=== PATIENT | male | born 1980 | race Caucasian/White ===

== ENCOUNTER 2020-02-19 12:31 | Observation (INO) | payer OTHER, SELFPAY ==
[2020-02-19] VITALS (16 sets, daily range): BP systolic 122–139; BP diastolic 52–75; PULSE 82–107; RESP 14–27; TEMP 36.9–37.9; O2SAT 95–100; BMI 24.3
--- NOTE | 2020-02-19 | PATH_ITS ---
[facility] Accession Number: [id number] . 01 Material submitted: . appendix - APPENDIX . 01 Clinical history: . ABD PAIN RIGHT SIDE . 02 Diagnosis: Appendix, Appendectomy: Acute appendicitis with mural absceses and serositis. No evidence of neoplasm. MRV 02/22/2020 1143 Local . 02 Electronically signed: . Reyes Asif MD, PhD, Pathologist NPI- [id number] . 01 Gross description: . Received in formalin, labeled appendix, and consists of a 9.5 cm in length by up to 1.8 cm in diameter vermiform appendix with minimal attached will-yellow hemorrhagic mesoappendix. The serosa is will-pink with fibrinous adhesions and the distal 4.5 cm is hemorrhage and ragged with purulent exudate. Sectioning reveals at least two perforation sites and a possible abscess cavity within the distal portion of the appendix, located 4.5 cm from the margin. The mucosa is will and the lumen measures up to 0.6 cm. The wall thickness measures up to 0.4 cm in thickness. Drawer Hardware Worker sections are submitted. . A1: tip (en face, blue), manufacturer's service representative perforation site. A2-A3: perforation site and possible abscess cavity. A4-A5: bisected tip with perforation. ([id number]) /MRV 02/21/2020 1139 Local . 02 Pathologist provided ICD-10: K35.80 . 02 CPT . 714439 Performed at: 01 [facility] [address] [place] [address], [place], [place] [id number] MD Eric Ovalle MD Phone: [phone] Performed at: 02 [facility] [place] [address] [place], [place] [id number] MD Ena Saleh MD Phone: [phone]
[2020-02-19 13:29] LABS: Add Manual Diff / Slide Review NO; Basophils Absolute Auto 0 /uL (0-100); Basophils Percent Auto 0.3 % (0-2); Eosinophils Absolute Auto 100 /uL (0-450); Eosinophils Percent Auto 0.6 % (2-4); Hemoglobin 14.5 g/dL (13.5-17.5); Lymphocytes Absolute Auto 1400 /uL (1100-4500); Lymphocytes Percent Auto 12.1 % (25-40); Mean Corpuscular HGB Conc 33.8 % (30-36); Mean Corpuscular Hemoglobin 29.2 PG (26-34); Mean Corpuscular Volume 86.5 fL (80-100); Monocytes Absolute Auto 1000 /uL (0-900); Monocytes Percent Auto 8.5 % (3-14); Neutrophils Absolute Auto 9400 /uL (1500-7000); Neutrophils Percent Auto 78.5 % (50-75); Platelet Count 210 X10^3/uL (150-400); Red Blood Cell Count 4.97 X10^6/uL (4.5-5.9); Red Cell Distribution Width 12.8 % (11.6-14.8); White Blood Cell Count 11.9 X10^3/uL (4.5-11.0)
[2020-02-19 13:32] LABS: INR 1.1 (0.9-1.3); Prothrombin Time 12.7 SECONDS (10.1-12.7)
[2020-02-19 13:35] LABS: PTT Partial Thromboplastin Tim 33 SECONDS (26.4-36.2)
[2020-02-19 13:37] LABS: Alanine Aminotransferase 17 IU/L (<50); Albumin 4.5 g/dL (3.5-5.0); Albumin Globulin Ratio 1.6 (1.0-2.8); Alkaline Phosphatase 76 U/L (38-126); Aspartate Aminotransferase 25 IU/L (17-59); BUN Creatinine Ratio 13.9 (6-22); Blood Urea Nitrogen 11 mg/dL (9-20); Carbon Dioxide 30 mmol/L (22-32); Chloride 101 mmol/L (98-107); Estimated Glomerular Filt Rate > 60.0 mL/min (>60); Globulin 2.9 g/dL (1.7-4.1); Glucose 115 mg/dL (70-100); HEMOLYSIS 27 (0-50); Lipase 41 U/L (23-300); Potassium 3.4 mmol/L (3.4-5.1); Sodium 138 mmol/L (137-145); Total Protein 7.4 g/dL (6.3-8.2)
[2020-02-19 13:39] LABS: Lactate (Lactic Acid) 1.3 mmol/L (0.7-2.1)
[2020-02-19 13:52] LABS: Procalcitonin < 0.05 ng/mL (<0.5)
--- NOTE | 2020-02-19 14:10 | DI.CT.S_ITS ---
PROCEDURE: CT ABDOMEN PELVIS W CON INDICATIONS: right lower abdominal pain TECHNIQUE: After the administration of intravenous contrast, 5 mm thick sections acquired from the diaphragm to the symphysis. 5 mm coronal and sagittal reformats were acquired. For radiation dose reduction, the following was used: automated exposure control, adjustment of mA and/or kV according to patient size. COMPARISON: None. FINDINGS: Image quality: Excellent. ABDOMEN: Lung bases: Lung bases are clear. Heart size is normal. Solid organs: Evaluation of the liver demonstrates no focal hepatic lesions. The gallbladder appears within normal limits without calcified gallstones. Biliary system is non-dilated. Pancreas enhances normally. No peripancreatic fat stranding or fluid collections. No pancreatic duct dilatation. The spleen is normal in size. No adrenal nodules. Kidneys demonstrate no hydronephrosis. Peritoneum and bowel: Bowel loops demonstrate normal wall thickness and caliber. The appendix is enlarged with wall thickening, measuring to 1.7 cm in diameter. There is associated periappendiceal fat stranding and a small amount of periappendiceal free fluid extending into right paracolic gutter. No macroscopic free air. No periappendiceal abscess. There are few colonic diverticula without acute diverticulitis. Nodes and vessels: No retroperitoneal or mesenteric adenopathy by size criteria. Multiple mildly prominent subcentimeter mesenteric lymph nodes are demonstrated within the right lower quadrant which are likely reactive. Aorta and inferior vena cava are normal in size. Miscellaneous: No ventral hernias. PELVIS: Genitourinary: Bladder wall thickness is normal. Miscellaneous: No inguinal hernias or adenopathy. Bones: No suspicious bony lesions. No vertebral body compression fractures. IMPRESSION: 1. Findings consistent with acute appendicitis with a small amount of periappendiceal fluid in the right pericolic gutter. Perforation cannot be excluded. No associated free air or abscess collection identified. Findings discussed with ANIKA Dukes on 02/19/2020 at 2:42 p.m.. Dictated by: Eric Gan M.D. on 02/19/2020 at 14:39 Approved by: Eric Gan M.D. on 02/19/2020 at 14:44
[2020-02-19] MEDS: SODIUM CHLORIDE 0.9% 1,000 ML 125 ML IV (14:53)
--- NOTE | 2020-02-19 14:59 | ED.ABDPAIN ---
HPI - Abdominal Pain <ALBERT DukesP - Last Filed: 02/19/20 15:40> General Chief Complaint: Abdominal Pain Stated Complaint: ABD PAIN RIGHT SIDE Time Seen by Provider: 02/19/20 13:55 Source: patient Mode of arrival: Ambulatory Limitations: no limitations History of Present Illness HPI narrative: This is a 39-year-old male, noncontributing medical history presents to ED with chief complain of right knee and low quadrant pain for a few days. Patient denies fever, chills, nausea or vomiting or diarrhea. Patient reports he had similar symptoms about a month ago for 5 days which resolved spontaneously. Patient denies recent illness. Reports pain increases with pressure, twisting, bending motion and improves with rest. Patient also had mild low back pain which resolved. Patient denies urinary symptoms including hematuria, dysuria, frequency, urgency, kidney stone. Patient denies unusual penile discharge or scrotal mass. Last meal at 11:00 a.m. had salad and drink at 12:30 p.m. with sips of water. No previous abdominal surgeries. Related Data Home Medications Medication Instructions Recorded Confirmed No Known Home Medications 02/19/20 02/19/20 Allergies Allergy/AdvReac Type Severity Reaction Status Date / Time No Known Drug Allergies Allergy Verified 02/19/20 16:28 Review of Systems <ALBERT DukesP - Last Filed: 02/19/20 15:40> Review of Systems Narrative: General: Denies fever, chills, fatigue, malaise, sweats. HEENT: Denies sinus pain, ear pain, sore throat, difficulty swallowing, dizziness. Respiratory: Denies dyspnea, cough, wheezing, hemoptysis, sputum. Cardiovascular: Denies chest pain, palpitations, orthopnea, edema. Gastrointestinal: See HPI : Denies dysuria, frequency, incontinence, hematuria, urinary retention. Musculoskeletal: Resolved low back pain. Denies weakness, joint pain or bony pain. Skin: Denies rash, skin lesions, or other. Neurologic: Denies weakness, headache, numbness, change in speech, confusion, seizures, incoordination. Psychiatric: No concerning psychosocial issues. 12-point review of systems is negative except for those stated above. Patient History [facility] Last Filed: 02/19/20 15:40> Surgical History History of surgical removal of meniscus of knee (Acute) Social History household members: spouse Smoking Status: Never smoker alcohol intake: current Smoking Status: Never smoker alcohol intake frequency: 0-2 drinks per day Substance Use Type: does not use Exam <ANIKA Dukes - Last Filed: 02/19/20 15:40> Narrative Exam Narrative: GEN: Alert, oriented x 3, well appearing and nourished, and in no acute distress. Head: Normal cephalic, atraumatic. No scalp or temporal tenderness, palpable mass or rash. EYES: Pupils are equal, round, and reactive to light and accommodation. Extraocular muscles are intact bilaterally. There is no subconjunctival hemorrhage, exudate and sclera non-icteric. ENT: Bilateral auditory canals and tympanic membranes clear. Hearing grossly intact. Nose without bleeding, purulent discharge or deviation. Facial sinuses nontender to palpate. Mucous membrane moist, no mucosal lesion. Throat without erythema, tonsillar hypertrophy or exudate. Uvula in midline, airway patent. Neck: Trachea in midline. No JVD, non-tender without lymphadenopathy. No masses or thyroid megaly. Supple, non-tender and no meningeal signs. CARDIAC: Normal regular rate and rhythm without murmurs, gallops, or rubs. No chest wall tenderness. No peripheral edema, cyanosis or pallor. Capillary refill is less than 2 seconds. RESPIRATORY: Lungs are clear to auscultate bilaterally. No cough, wheezes, rales, or rhonchi. No stridor, respiratory distress, increase work of breathing, or accessary muscle used. ABD: Abdomen soft and non-distended. Right need and low abdominal pain tender to palpate. No guarding or rebound tenderness to palpate. Bowel sounds are normal in all 4 quadrants. There is no palpable masses or organomegaly. EXT: Full painless ROM of all extremities with no loss of sensation, strength, effusion or edema. SKIN: Warm, dry, normal color for patient. No erythema, lesions or rash over visible areas. BACK: Nontender without deformity or crepitance. No flank tenderness. NEUROLOGICAL: Alert and oriented to place, time and person. Sensation and motor function intact bilaterally. No facial droops, dysphasia. PSYCHIATRIC: Good judgement and reason, without hallucinations, abnormal affect or abnormal behaviors during the examination. Patient is not suicidal. Initial Vital Signs Initial Vital Signs: Vital Signs Temperature 98.4 F 02/19/20 12:41 Pulse Rate 96 H 02/19/20 12:41 Respiratory Rate 15 02/19/20 12:41 Blood Pressure 139/75 02/19/20 12:41 Pulse Oximetry 99 02/19/20 12:41 <Levy Kingston MD - Last Filed: 02/19/20 18:14> Initial Vital Signs Initial Vital Signs: Vital Signs Temperature 98.4 F 02/19/20 12:41 Pulse Rate 96 H 02/19/20 12:41 Respiratory Rate 15 02/19/20 12:41 Blood Pressure 139/75 02/19/20 12:41 Pulse Oximetry 99 02/19/20 12:41 Scores <ANIKA Dukes - Last Filed: 02/19/20 15:40> GCS [place] coma scale eye opening: Spontaneous [place] coma scale verbal response: Orientated Demi coma scale motor response: Obey commands Demi coma scale total score: 15 Course <ANIKA Dukes - Last Filed: 02/19/20 15:40> Orders Ordered: ED Orders 02/19/20 13:16 Complete Blood Count AUTO DIFF Stat Comprehensive Metabolic Panel Stat Lactate (Lactic Acid) Stat Lipase Stat Partial Thromboplastin Time Stat Procalcitonin Stat Prothrombin Time INR Stat 02/19/20 14:10 CT abdomen pelvis w con Stat 02/19/20 14:55 COVID19 -ED/INPAT/OR/L&D Stat Sodium Chloride (Normal Saline 0.9%) 1,000 mls @ 125 mls/hr IV CONT LEWIS Last Infusion: 02/19/20 15:54 Dose: 125 mls/hr Documented by: Admin: 02/19/20 14:53 Dose: 125 mls/hr Documented by: ABAD Lactated Ringer's (Lactated Ringers) 1,000 mls @ 42 mls/hr IV CONT LEWIS Last Admin: 02/19/20 16:36 Dose: 42 mls/hr Documented by: LEEANNE Discontinued Medications Piperacillin/Tazobactam/Dextrose (Zosyn) 3.375 gm in 50 mls @ 100 mls/hr IV NOW ONE Stop: 02/19/20 15:35 Last Infusion: 02/19/20 16:28 Dose: 0 mls/hr Documented by: Infusion: 02/19/20 15:53 Dose: 100 mls/hr Documented by: Admin: 02/19/20 15:35 Dose: 100 mls/hr Documented by: ABAD Reevaluation(s) Reevaluation #1: Radiologist phoned to inform appendicitis with free fluid without abscess appreciated per CT test. Informed patient of findings. Waiting for Dr. Lea's phone call. Time: 14:50 Consultations Consultation #1: Dr. Lea consulted with CT findings, labs and physical findings for appy. He kindly accepted the patient's care. He recommended IV Zosyn 3.375 g and will evaluate patient. Time: 14:55 Vital Signs Vital signs: Vital Signs - 8 hr 02/19/20 12:41 02/19/20 15:02 02/19/20 15:03 Temperature 98.4 F Pulse Rate 96 H 82 86 Respiratory Rate 15 Blood Pressure 139/75 135/72 Pulse Oximetry 99 98 99 <Levy Kingston MD - Last Filed: 02/19/20 18:14> Orders Ordered: ED Orders 02/19/20 13:16 Complete Blood Count AUTO DIFF Stat Comprehensive Metabolic Panel Stat Lactate (Lactic Acid) Stat Lipase Stat Partial Thromboplastin Time Stat Procalcitonin Stat Prothrombin Time INR Stat 02/19/20 14:10 CT abdomen pelvis w con Stat 02/19/20 14:55 COVID19 -ED/INPAT/OR/L&D Stat Sodium Chloride (Normal Saline 0.9%) 1,000 mls @ 125 mls/hr IV CONT LEWIS Last Infusion: 02/19/20 15:54 Dose: 125 mls/hr Documented by: Admin: 02/19/20 14:53 Dose: 125 mls/hr Documented by: ABAD Lactated Ringer's (Lactated Ringers) 1,000 mls @ 42 mls/hr IV CONT LEWIS Last Admin: 02/19/20 16:36 Dose: 42 mls/hr Documented by: LEEANNE Discontinued Medications Piperacillin/Tazobactam/Dextrose (Zosyn) 3.375 gm in 50 mls @ 100 mls/hr IV NOW ONE Stop: 02/19/20 15:35 Last Infusion: 02/19/20 16:28 Dose: 0 mls/hr Documented by: Infusion: 02/19/20 15:53 Dose: 100 mls/hr Documented by: Admin: 02/19/20 15:35 Dose: 100 mls/hr Documented by: MMINOR Vital Signs Vital signs: Vital Signs - 8 hr 02/19/20 12:41 02/19/20 15:02 02/19/20 15:03 Temperature 98.4 F Pulse Rate 96 H 82 86 Respiratory Rate 15 Blood Pressure 139/75 135/72 Pulse Oximetry 99 98 99 MDM - Abdominal Pain <[place] ANIKA Greenfield - Last Filed: 02/19/20 15:40> Differential Diagnosis Differential diagnosis: Likely acute appendicitis, calculus of kidney, small bowel obstruction and other (Lymphadenopathy, diverticulitis, UTI) Medical Records Attestation: I reviewed the patient's medical records. Lab Data Attestation: I reviewed the patient's lab results. Result diagrams: 02/19/20 13:16 02/19/20 13:16 Labs: Lab Results 02/19/20 02/19/20 02/19/20 Range/Units 13:16 13:16 13:16 WBC 11.9 H (4.5-11.0) X10^3/uL RBC 4.97 (4.5-5.9) X10^6/uL Hgb 14.5 (13.5-17.5) g/dL Hct 43.0 (41-53) % MCV 86.5 (80-100) fL MCH 29.2 (26-34) PG MCHC 33.8 (30-36) % RDW 12.8 (11.6-14.8) % Plt Count 210 (150-400) X10^3/uL Neut % (Auto) 78.5 H (50-75) % Lymph % (Auto) 12.1 L (25-40) % [place]ountain % (Auto) 8.5 (3-14) % Eos % (Auto) 0.6 L (2-4) % Baso % (Auto) 0.3 (0-2) % Neut # (Auto) 9400 H (6879-1928) /uL Lymph # (Auto) 1400 (6183-8557) /uL [place] # (Auto) 1000 H (0-900) /uL Eos # (Auto) 100 (0-450) /uL Baso # (Auto) 0 (0-100) /uL PT 12.7 (10.1-12.7) SECONDS INR 1.1 (0.9-1.3) APTT 33 (26.4-36.2) SECONDS Sodium 138 (137-145) mmol/L Potassium 3.4 (3.4-5.1) mmol/L Chloride 101 (98-107) mmol/L Carbon Dioxide 30 (22-32) mmol/L BUN 11 (9-20) mg/dL Creatinine 0.79 (0.66-1.25) mg/dL Estimated GFR > 60.0 (>60) mL/min BUN/Creatinine Ratio 13.9 (6-22) Glucose 115 H (70-100) mg/dL Lactate (0.7-2.1) mmol/L Calcium 9.0 (8.4-10.2) mg/dL Total Bilirubin 1.0 (0.2-1.3) mg/dL AST 25 (17-59) IU/L ALT 17 (<50) IU/L Alkaline Phosphatase 76 (38-126) U/L Total Protein 7.4 (6.3-8.2) g/dL Albumin 4.5 (3.5-5.0) g/dL Globulin 2.9 (1.7-4.1) g/dL Albumin/Globulin Ratio 1.6 (1.0-2.8) Lipase 41 (23-300) U/L Procalcitonin (<0.5) ng/mL COVID-19 PCR (Negative) 02/19/20 02/19/20 02/19/20 Range/Units 13:16 13:16 14:55 WBC (4.5-11.0) X10^3/uL RBC (4.5-5.9) X10^6/uL Hgb (13.5-17.5) g/dL Hct (41-53) % MCV (80-100) fL MCH (26-34) PG MCHC (30-36) % RDW (11.6-14.8) % Plt Count (150-400) X10^3/uL Neut % (Auto) (50-75) % Lymph % (Auto) (25-40) % [place] % (Auto) (3-14) % Eos % (Auto) (2-4) % Baso % (Auto) (0-2) % Neut # (Auto) (9346-7319) /uL Lymph # (Auto) (9644-0078) /uL Fountain # (Auto) (0-900) /uL Eos # (Auto) (0-450) /uL Baso # (Auto) (0-100) /uL PT (10.1-12.7) SECONDS INR (0.9-1.3) APTT (26.4-36.2) SECONDS Sodium (137-145) mmol/L Potassium (3.4-5.1) mmol/L Chloride (98-107) mmol/L Carbon Dioxide (22-32) mmol/L BUN (9-20) mg/dL Creatinine (0.66-1.25) mg/dL Estimated GFR (>60) mL/min BUN/Creatinine Ratio (6-22) Glucose (70-100) mg/dL Lactate 1.3 (0.7-2.1) mmol/L Calcium (8.4-10.2) mg/dL Total Bilirubin (0.2-1.3) mg/dL AST (17-59) IU/L ALT (<50) IU/L Alkaline Phosphatase (38-126) U/L Total Protein (6.3-8.2) g/dL Albumin (3.5-5.0) g/dL Globulin (1.7-4.1) g/dL Albumin/Globulin Ratio (1.0-2.8) Lipase (23-300) U/L Procalcitonin < 0.05 (<0.5) ng/mL COVID-19 PCR Negative (Negative) Point of care testing: Urine Dip Bedside Urine Glucose Negative Bedside Urine Bilirubin - Negative Bedside Urine Ketone - Negative Urine Specific [place] 1.020 Bedside Urine Occult Blood - Negative Bedside Urine pH 6.0 Bedside Urine Protein - Negative Bedside Urine Urobilinogen - Negative Bedside Urine Nitrite - Negative Bedside Urine Leukocytes - Negative Esterase Imaging Data CT scan - abdomen/pelvis: Radiologist's Impression: [address] [address] [address] Scan Report Signed Patient: Bonifacio Abdi MMR#: [id number] : 1980Acct:[id number] Age/Sex: 39 / MDate of Service: 02/19/20 Loc: ED Accession Number: [id number] Procedure: CT abdomen pelvis w con Ordering Provider: Levy Kingston MD PROCEDURE: CT ABDOMEN PELVIS W CON INDICATIONS: right lower abdominal pain TECHNIQUE: After the administration of intravenous contrast, 5 mm thick sections acquired from the diaphragm to the symphysis. 5 mm coronal and sagittal reformats were acquired. For radiation dose reduction, the following was used: automated exposure control, adjustment of mA and/or kV according to patient size. COMPARISON: None. FINDINGS: Image quality: Excellent. ABDOMEN: Lung bases: Lung bases are clear. Heart size is normal. Solid organs: Evaluation of the liver demonstrates no focal hepatic lesions. The gallbladder appears within normal limits without calcified gallstones. Biliary system is non-dilated. Pancreas enhances normally. No peripancreatic fat stranding or fluid collections. No pancreatic duct dilatation. The spleen is normal in size. No adrenal nodules. Kidneys demonstrate no hydronephrosis. Peritoneum and bowel: Bowel loops demonstrate normal wall thickness and caliber. The appendix is enlarged with wall thickening, measuring to 1.7 cm in diameter. There is associated periappendiceal fat stranding and a small amount of periappendiceal free fluid extending into right paracolic gutter. No macroscopic free air. No periappendiceal abscess. There are few colonic diverticula without acute diverticulitis. Nodes and vessels: No retroperitoneal or mesenteric adenopathy by size criteria. Multiple mildly prominent subcentimeter mesenteric lymph nodes are demonstrated within the right lower quadrant which are likely reactive. Aorta and inferior vena cava are normal in size. Miscellaneous: No ventral hernias. PELVIS: Genitourinary: Bladder wall thickness is normal. Miscellaneous: No inguinal hernias or adenopathy. Bones: No suspicious bony lesions. No vertebral body compression fractures. IMPRESSION: 1. Findings consistent with acute appendicitis with a small amount of periappendiceal fluid in the right pericolic gutter. Perforation cannot be excluded. No associated free air or abscess collection identified. Findings discussed with ANIKA Dukes on 02/19/2020 at 2:42 p.m.. Dictated by: Eric Gan M.D. on 02/19/2020 at 14:39 Approved by: Eric Gan M.D. on 02/19/2020 at 14:44 [facility] Narrative Medical decision making narrative: This is a 39-year-old male who present to ED with right lower quadrant pain for last several days. Patient denies constitutional symptoms. Patient denies urinary symptoms. Mild leukocytosis of 11.9 with neutrophil of 78.5%. Normal lactate of 1.3 with procalcitonin last and 0.05. Slightly elevated glucose of 115. Normal coags. Physical exam was concerned for appendicitis with tender to palpate in right mid to low abdomen and CT of abdomen pelvis ordered and obtained. CT test shows appendicitis with small amount of free fluid without obvious abscess seen. Urine test was negative. Covid test was negative. Dr. Lea consulted and he kindly accepted patient's care. Started IV fluid and Zosyn 3.375 g. Patient had last meal at 11 a.m. and sips of water at 12:30 p.m for surgical intervention. Findings discussed with patient and he verbalized understanding and agreement with the treatment plan. <Levy Kingston MD - Last Filed: 02/19/20 18:14> Lab Data Labs: Lab Results 02/19/20 02/19/20 02/19/20 Range/Units 13:16 13:16 13:16 WBC 11.9 H (4.5-11.0) X10^3/uL RBC 4.97 (4.5-5.9) X10^6/uL Hgb 14.5 (13.5-17.5) g/dL Hct 43.0 (41-53) % MCV 86.5 (80-100) fL MCH 29.2 (26-34) PG MCHC 33.8 (30-36) % RDW 12.8 (11.6-14.8) % Plt Count 210 (150-400) X10^3/uL Neut % (Auto) 78.5 H (50-75) % Lymph % (Auto) 12.1 L (25-40) % [place] % (Auto) 8.5 (3-14) % Eos % (Auto) 0.6 L (2-4) % Baso % (Auto) 0.3 (0-2) % Neut # (Auto) 9400 H (6504-8806) /uL Lymph # (Auto) 1400 (2695-3661) /uL [place] # (Auto) 1000 H (0-900) /uL Eos # (Auto) 100 (0-450) /uL Baso # (Auto) 0 (0-100) /uL PT 12.7 (10.1-12.7) SECONDS INR 1.1 (0.9-1.3) APTT 33 (26.4-36.2) SECONDS Sodium 138 (137-145) mmol/L Potassium 3.4 (3.4-5.1) mmol/L Chloride 101 (98-107) mmol/L Carbon Dioxide 30 (22-32) mmol/L BUN 11 (9-20) mg/dL Creatinine 0.79 (0.66-1.25) mg/dL Estimated GFR > 60.0 (>60) mL/min BUN/Creatinine Ratio 13.9 (6-22) Glucose 115 H (70-100) mg/dL Lactate (0.7-2.1) mmol/L Calcium 9.0 (8.4-10.2) mg/dL Total Bilirubin 1.0 (0.2-1.3) mg/dL AST 25 (17-59) IU/L ALT 17 (<50) IU/L Alkaline Phosphatase 76 (38-126) U/L Total Protein 7.4 (6.3-8.2) g/dL Albumin 4.5 (3.5-5.0) g/dL Globulin 2.9 (1.7-4.1) g/dL Albumin/Globulin Ratio 1.6 (1.0-2.8) Lipase 41 (23-300) U/L Procalcitonin (<0.5) ng/mL COVID-19 PCR (Negative) 02/19/20 02/19/20 02/19/20 Range/Units 13:16 13:16 14:55 WBC (4.5-11.0) X10^3/uL RBC (4.5-5.9) X10^6/uL Hgb (13.5-17.5) g/dL Hct (41-53) % MCV (80-100) fL MCH (26-34) PG MCHC (30-36) % RDW (11.6-14.8) % Plt Count (150-400) X10^3/uL Neut % (Auto) (50-75) % Lymph % (Auto) (25-40) % [place] % (Auto) (3-14) % Eos % (Auto) (2-4) % Baso % (Auto) (0-2) % Neut # (Auto) (8753-7756) /uL Lymph # (Auto) (8980-0618) /uL [place] # (Auto) (0-900) /uL Eos # (Auto) (0-450) /uL Baso # (Auto) (0-100) /uL PT (10.1-12.7) SECONDS INR (0.9-1.3) APTT (26.4-36.2) SECONDS Sodium (137-145) mmol/L Potassium (3.4-5.1) mmol/L Chloride (98-107) mmol/L Carbon Dioxide (22-32) mmol/L BUN (9-20) mg/dL Creatinine (0.66-1.25) mg/dL Estimated GFR (>60) mL/min BUN/Creatinine Ratio (6-22) Glucose (70-100) mg/dL Lactate 1.3 (0.7-2.1) mmol/L Calcium (8.4-10.2) mg/dL Total Bilirubin (0.2-1.3) mg/dL AST (17-59) IU/L ALT (<50) IU/L Alkaline Phosphatase (38-126) U/L Total Protein (6.3-8.2) g/dL Albumin (3.5-5.0) g/dL Globulin (1.7-4.1) g/dL Albumin/Globulin Ratio (1.0-2.8) Lipase (23-300) U/L Procalcitonin < 0.05 (<0.5) ng/mL COVID-19 PCR Negative (Negative) Point of care testing: Urine Dip Bedside Urine Glucose Negative Bedside Urine Bilirubin - Negative Bedside Urine Ketone - Negative Urine Specific [place] 1.020 Bedside Urine Occult Blood - Negative Bedside Urine pH 6.0 Bedside Urine Protein - Negative Bedside Urine Urobilinogen - Negative Bedside Urine Nitrite - Negative Bedside Urine Leukocytes - Negative Esterase Discharge Plan Departure Patient Disposition: Admitted as Observation Clinical Impression: Acute appendicitis Qualifiers: Acute appendicitis type: unspecified acute appendicitis type Qualified Code(s): K35.80 - Unspecified acute appendicitis Discharge Date/Time: 02/19/20 15:55 Admit Date/Time: 02/19/20 15:11 Admit Provider: Torito Lea <Levy Kingston MD - Last Filed: 02/19/20 18:14> Cosign ED Attending Cosignature Attestation: I was immediately available in the department for consultation. This documentation has been reviewed and I agree with assessment and plan. Supervised by Levy Kingston MD
[2020-02-19 15:29] LABS: COVID19 -Nasal RAPID Negative (Negative)
[2020-02-19] MEDS: PIPERACILLIN-TAZO 3.375 GM/50 ML FROZ.PIGGY IV (15:35)
[2020-02-19] MEDS: LACTATED RINGERS 1,000 ML 42 ML IV ×3 (16:36→22:40)
--- NOTE | 2020-02-19 18:42 | SUR.HOLD ---
Transferred patient back to inpatient room due to complications and delay with previous patient's surgery. Apologized to patient for delay of surgical procedure. Patient states he would rather wait in his room until his surgery can be started. Gave report to inpatient nurse regarding situation.
--- NOTE | 2020-02-19 21:12 | PM.HP.1 ---
History of Present Illness History of Present Illness Date Patient Seen: 02/19/20 Time Patient Seen: 21:13 Chief complaint: ABD PAIN RIGHT SIDE Narrative: 39-year-old male seen in the hospital in consultation for acute appendicitis. He has had some vague abdominal pain for the last 2 days today becoming more focused in the right lower quadrant. No associated nausea vomiting or diarrhea. CT abdomen pelvis demonstrates a 1.7 cm appendix with a small amount of for associated free fluid. No free air or abscess. He received Zosyn in the emergency room. No history of prior abdominal surgery. No major medical conditions. He has tolerated anaesthesia previously for a meniscal repair. Patient History Surgical History History of surgical removal of meniscus of knee (Acute) Family & Social History Social History: household members spouse Prior Living Arrangements House Safety & Behavioral: Feels Safe in Current Yes Environment Been Physically Hurt or No Threatened By a Person Suicidal Ideation Description None Suicide Plan Description No Plan Tobacco & Substance use: Smoking Status Never smoker alcohol intake current alcohol intake frequency a few times a week Substance Use Type does not use Meds Home Medications and Allergies Home Medications Medication Instructions Recorded Confirmed Type No Known Home Medications 02/19/20 02/19/20 History Allergies Allergy/AdvReac Type Severity Reaction Status Date / Time No Known Drug Allergies Allergy Verified 02/19/20 16:28 Review of Systems Review of Systems Narrative: A 10 point review of systems is negative except as noted in the HPI Exam Vital Signs (past 8 hours): - 02/19/20 15:02 02/19/20 15:03 02/19/20 15:30 Temperature Pulse Rate 82 86 86 Respiratory Rate Blood Pressure 135/72 122/67 Pulse Oximetry 98 99 98 02/19/20 15:45 02/19/20 16:09 02/19/20 16:38 Temperature 99.6 F 99.2 F Pulse Rate 87 92 H Respiratory Rate 14 14 16 Blood Pressure 128/67 132/63 Pulse Oximetry 100 98 02/19/20 17:35 Temperature 100.3 F H Pulse Rate 87 Respiratory Rate 16 Blood Pressure 135/75 Pulse Oximetry 98 Oxygen Delivery Method Room Air Narrative Exam Narrative: General-no acute distress, well nourished adult male HEENT-moist mucous membranes, no scleral icterus Neck-supple, no lymphadenopathy Chest- non labored respirations, clear to auscultation bilaterally Cardiac-regular rate no peripheral edema Abdomen-tender right lower quadrant no guarding Extremities-warm, well perfused Neurological-alert and oriented, no focal deficits Objective Labs Result Diagrams: 02/19/20 13:16 02/19/20 13:16 Labs: Laboratory Results - last 24 hr 02/19/20 02/19/20 02/19/20 13:16 13:16 13:16 WBC 11.9 H RBC 4.97 Hgb 14.5 Hct 43.0 MCV 86.5 MCH 29.2 MCHC 33.8 RDW 12.8 Plt Count 210 Neut % (Auto) 78.5 H Lymph % (Auto) 12.1 L [place] % (Auto) 8.5 Eos % (Auto) 0.6 L Baso % (Auto) 0.3 Neut # (Auto) 9400 H Lymph # (Auto) 1400 [place] # (Auto) 1000 H Eos # (Auto) 100 Baso # (Auto) 0 PT 12.7 INR 1.1 APTT 33 Sodium 138 Potassium 3.4 Chloride 101 Carbon Dioxide 30 BUN 11 Creatinine 0.79 Estimated GFR > 60.0 BUN/Creatinine Ratio 13.9 Glucose 115 H Lactate Calcium 9.0 Total Bilirubin 1.0 AST 25 ALT 17 Alkaline Phosphatase 76 Total Protein 7.4 Albumin 4.5 Globulin 2.9 Albumin/Globulin Ratio 1.6 Lipase 41 Procalcitonin COVID-19 PCR 02/19/20 02/19/20 02/19/20 13:16 13:16 14:55 WBC RBC Hgb Hct MCV MCH MCHC RDW Plt Count Neut % (Auto) Lymph % (Auto) [place] % (Auto) Eos % (Auto) Baso % (Auto) Neut # (Auto) Lymph # (Auto) [place] # (Auto) Eos # (Auto) Baso # (Auto) PT INR APTT Sodium Potassium Chloride Carbon Dioxide BUN Creatinine Estimated GFR BUN/Creatinine Ratio Glucose Lactate 1.3 Calcium Total Bilirubin AST ALT Alkaline Phosphatase Total Protein Albumin Globulin Albumin/Globulin Ratio Lipase Procalcitonin < 0.05 COVID-19 PCR Negative Assessment & Plan Assessment & Plan narrative: 39-year-old male with acute appendicitis x [address] scan demonstrates a 5 in thickened appendix and small amount of free fluid no abscess. White blood cell count on admission 12 afebrile. Recommended that we proceed to the operating room for a laparoscopic appendectomy. Technical details were discussed. Operative risks including bleeding infection damage to surrounding structures were discussed. His questions have been answered he is in agreement with this plan. Quality VTE Deep Vein Thrombosis/Pulmonary Embolism Present on Admission: No
--- NOTE | 2020-02-19 21:45 | SUR.OPER ---
Supine on padded OR bed, head on pillow, left arm padded and tucked at side, right arm on padded armboard <90 degrees abduction, legs uncrossed, safety belt at thigh, tape over blanket over lower legs .
[2020-02-19] MEDS: BUPIVACAINE 0.25% (PF) VIAL 30 ML INJ (21:52)
--- NOTE | 2020-02-19 22:33 | PC.NURSE ---
Pt is A and O x 4, VSS, febrile at 100.3, HRR, LS clear. Pain R LQ 2-3/10. Voiding qs clear yellow. Pt arrived on unit at 1604 and was taken to the OR at approx 1700 but his surgery delayed, brought back up to unit, then taken to OR at approx 2100.
--- NOTE | 2020-02-19 22:53 | P.OP_ITS ---
Operative Date/Time/Diagnoses Date of procedure: 02/19/20 Time of procedure: 22:53 Pre-op diagnosis: Acute appendicitis Post-op diagnosis: same Procedure & Clinicians Procedure: Laparoscopic appendectomy Same procedure as scheduled: Yes Indications: 39-year-old male presented with 2 days of abdominal pain CT demonstrates acute appendicitis no abscess small amount of free fluid. Interestingly he had some abdominal pain 1 month ago unclear etiology that resolved spontaneously Surgeon: Torito Lea Click Yes if Unassisted: Yes Anesthesia Type: General Operative Notes Findings: Perforated appendicitis, small amount of free fluid no purulence peritonitis small abscess around the tip of the appendix Specimen(s): other (Appendix) Estimated Blood Loss (mL): 100 Procedure in detail: Patient was brought to the operating room placed supine on the table. Bilateral lower extremity compression devices were applied. Anesthesia was induced and they intubated with an endotracheal tube. They received 3.375 g of Zosyn prior to skin incision. The left arm was tucked and appropriately padded. They were prepped and draped in sterile fashion. Time-out was performed. An infraumbilical incision was made the umbilical stalk was grasped and elevated and incision was made and the abdomen was entered a traumatically. A 12 mm balloon trocar was then placed through the incision and pneumoperitoneum of 14 mm Hg was established. The scope was then inserted and the abdomen inspected, there was no evidence of injury upon entry. Two 5 mm ports were placed under direct visualization, one in the left lower quadrant and second in the lower midline. A thorough laparoscopic evaluation was performed inspecting all four quadrants. The patient was then tilted right side up. The small bowel was then swept to the upper aspect of the abdomen. The tenie were followed to the base of the cecum where the appendix was identified. The appendix was grasped and then it was traced along its course from the cecum to its tip. The tip of the appendix was says significantly inflamed and there was a small perforation here as well as some surrounding abscess from the tip to the lateral abdominal wall. These attachments an abscess were broken the abdomen the appendix was then freed. The mesentery to the appendix was divided with electrocautery. The appendix was then amputated flush at the cecum using the endo-stapler blue load. The staple line and mesoappendix were inspected for hemostasis and there was some raw surface oozing from the lateral wall where the abscess had been. This was controlled with electrocautery and I placed a piece of Surgicel over rate as well. The specimen was retrieved using a endoscopic retrieval bad through the 10 mm infra-umbilical port. The right paracolic gutter and the pouch of Mike were irrigated copiously The 5 mm ports were then removed under direct visualization. The umbilical fascial incision was closed with 0 Vicryl in a figure-eight fashion. The skin incisions oozed more than I would have anticipated hemostasis was achieved with electrocautery. The skin wounds were irrigated and closed with 4-0 Monocryl followed by the application of Dermabond. Sponge instrument count at the end of the operation was correct. The patient tolerated procedure well was extubated and transferred to the postoperative care unit in stable condition. Complications: none Post-operative Condition: stable Disposition: same day surgery
[2020-02-19] MEDS: MEPERIDINE 50 MG/ML INJ 25 MG IV ×2 (23:13→23:18)
--- NOTE | 2020-02-19 23:48 | SUR.PHASEI ---
Report called to Mayelin
[2020-02-20] VITALS: BP 122/56; PULSE 94; RESP 18; TEMP 36.7; O2SAT 96
--- NOTE | 2020-02-20 | SUR.PHASEI ---
patient transferred to the floor. VS stable. Report given to GUY Dick. Abdominal sites CDI. IV saline locked.
[2020-02-20 00:30] VITALS: BP 116/65; PULSE 102; RESP 18; TEMP 37.2; O2SAT 97
[2020-02-20] MEDS: PIPERACILLIN-TAZO 3.375 GM/50 ML FROZ.PIGGY IV ×2 (00:41→07:52)
[2020-02-20] MEDS: LACTATED RINGERS 1,000 ML 120 ML IV (00:41)
[2020-02-20 01:00] VITALS: BP 110/55; PULSE 98; RESP 16; TEMP 37; O2SAT 97
[2020-02-20 02:00] VITALS: BP 124/44; PULSE 101; RESP 16; TEMP 37.1; O2SAT 97
[2020-02-20 03:00] VITALS: BP 115/60; PULSE 97; RESP 18; TEMP 36.7; O2SAT 97
[2020-02-20] MEDS: MORPHINE 2 MG/ML INJ IV (03:03)
[2020-02-20 05:56] LABS: Add Manual Diff / Slide Review NO; Basophils Absolute Auto 0 /uL (0-100); Basophils Percent Auto 0.1 % (0-2); Eosinophils Absolute Auto 0 /uL (0-450); Hematocrit 43.1 % (41-53); Hemoglobin 14.6 g/dL (13.5-17.5); Lymphocytes Absolute Auto 500 /uL (1100-4500); Lymphocytes Percent Auto 5.1 % (25-40); Mean Corpuscular Hemoglobin 29.6 PG (26-34); Monocytes Absolute Auto 100 /uL (0-900); Monocytes Percent Auto 1.4 % (3-14); Neutrophils Absolute Auto 8800 /uL (1500-7000); Neutrophils Percent Auto 93.4 % (50-75); Platelet Count 197 X10^3/uL (150-400); Red Blood Cell Count 4.95 X10^6/uL (4.5-5.9); Red Cell Distribution Width 12.7 % (11.6-14.8); White Blood Cell Count 9.4 X10^3/uL (4.5-11.0)
[2020-02-20 07:30] VITALS: BP 127/60; PULSE 62; RESP 15; TEMP 36.6; O2SAT 99
--- NOTE | 2020-02-20 09:11 | PM.DS.1 ---
History of Present Illness History of Present Illness Chief complaint: ABD PAIN RIGHT SIDE Narrative: 39-year-old male seen in the hospital in consultation for acute appendicitis. He has had some vague abdominal pain for the last 2 days today becoming more focused in the right lower quadrant. No associated nausea vomiting or diarrhea. CT abdomen pelvis demonstrates a 1.7 cm appendix with a small amount of for associated free fluid. No free air or abscess. He received Zosyn in the emergency room. No history of prior abdominal surgery. No major medical conditions. He has tolerated anaesthesia previously for a meniscal repair. Discharge Providers Provider Date of admission: 02/19/20 15:11 Discharge Date: 02/20/20 Discharge provider: Torito Lea MD Summary Hospital Course Discharge Diagnosis: Acute appendicitis Hospital Course: Patient underwent a laparoscopic appendectomy 02/19/2020. Perforated appendicitis with a small abscess at the tip of the appendix was found. He had some vague abdominal pain a month ago that resolved spontaneously and I suspect in review that this was probably appendicitis a month ago he probably perforated formed a small abscess and then had a recurrence accounting for this hospitalization. Postoperative day 1 he is doing well a afebrile normal white blood cell count tolerating diet he stable for discharge home on a course of Augmentin for 1 week time period Status at Discharge Cognitive/behavioral status at discharge: oriented Functional status at discharge: independent ambulation Exam Vital Signs (past 8 hours): - 02/20/20 02:00 02/20/20 03:00 02/20/20 07:30 Temperature 98.8 F 98.1 F 97.8 F Pulse Rate 101 H 97 H 62 Respiratory Rate 16 18 15 Blood Pressure 124/44 L 115/60 127/60 Pulse Oximetry 97 97 99 Oxygen Delivery Method Room Air Oxygen Flow Rate 0 Narrative Exam Narrative: General adult male alert oriented no acute distress Abdomen tender minimally right lower quadrant no peritonitis. Incisions clean dry intact Objective Labs Result Diagrams: 02/20/20 05:45 02/19/20 13:16 Labs: Laboratory Results - last 24 hr 02/19/20 02/19/20 02/19/20 13:16 13:16 13:16 WBC 11.9 H RBC 4.97 Hgb 14.5 Hct 43.0 MCV 86.5 MCH 29.2 MCHC 33.8 RDW 12.8 Plt Count 210 Neut % (Auto) 78.5 H Lymph % (Auto) 12.1 L [place] % (Auto) 8.5 Eos % (Auto) 0.6 L Baso % (Auto) 0.3 Neut # (Auto) 9400 H Lymph # (Auto) 1400 [place] # (Auto) 1000 H Eos # (Auto) 100 Baso # (Auto) 0 PT 12.7 INR 1.1 APTT 33 Sodium 138 Potassium 3.4 Chloride 101 Carbon Dioxide 30 BUN 11 Creatinine 0.79 Estimated GFR > 60.0 BUN/Creatinine Ratio 13.9 Glucose 115 H Lactate Calcium 9.0 Total Bilirubin 1.0 AST 25 ALT 17 Alkaline Phosphatase 76 Total Protein 7.4 Albumin 4.5 Globulin 2.9 Albumin/Globulin Ratio 1.6 Lipase 41 Procalcitonin COVID-19 PCR 02/19/20 02/19/20 02/19/20 13:16 13:16 14:55 WBC RBC Hgb Hct MCV MCH MCHC RDW Plt Count Neut % (Auto) Lymph % (Auto) [place] % (Auto) Eos % (Auto) Baso % (Auto) Neut # (Auto) Lymph # (Auto) [place] # (Auto) Eos # (Auto) Baso # (Auto) PT INR APTT Sodium Potassium Chloride Carbon Dioxide BUN Creatinine Estimated GFR BUN/Creatinine Ratio Glucose Lactate 1.3 Calcium Total Bilirubin AST ALT Alkaline Phosphatase Total Protein Albumin Globulin Albumin/Globulin Ratio Lipase Procalcitonin < 0.05 COVID-19 PCR Negative 02/20/20 05:45 WBC 9.4 RBC 4.95 Hgb 14.6 Hct 43.1 MCV 87.0 MCH 29.6 MCHC 34.0 RDW 12.7 Plt Count 197 Neut % (Auto) 93.4 H Lymph % (Auto) 5.1 L [place] % (Auto) 1.4 L Eos % (Auto) 0.0 L Baso % (Auto) 0.1 Neut # (Auto) 8800 H Lymph # (Auto) 500 L [place] # (Auto) 100 Eos # (Auto) 0 Baso # (Auto) 0 PT INR APTT Sodium Potassium Chloride Carbon Dioxide BUN Creatinine Estimated GFR BUN/Creatinine Ratio Glucose Lactate Calcium Total Bilirubin AST ALT Alkaline Phosphatase Total Protein Albumin Globulin Albumin/Globulin Ratio Lipase Procalcitonin COVID-19 PCR Discharge Plan Discharge Plan Patient Disposition: Home Discharge orders & Medications Prescriptions: New docusate sodium [Colace] 100 mg capsule 100 mg PO BID Qty: 30 RF: 0 oxycodone 5 mg tablet 5 mg PO Q6H PRN (Reason: pain) Qty: 30 RF: 0 acetaminophen [Tylenol] 325 mg capsule 650 mg PO QID PRN (Reason: pain) Qty: 60 RF: 0 amoxicillin-pot clavulanate [Augmentin] 875-125 mg tablet 1 tab PO BID Qty: 14 RF: 0 Follow up/Referrals: Torito Lea MD [Physician] - 03/05/20 10:30 am (APPT:03/05 @ 10:30 with please arrive 15 minutes prior to your scheduled appointment time) Diet/Activity/Treatments Diet: Regular Activity: No lifting >20 lbs x 4 weeks. Walking only for exercise for 4 weeks[address] while taking narcotics. Skin/Wound/Dressing Care Report to your healthcare provider any signs of infection, such as:: chills, fever, increased pain, unusual drainage and unusual redness Visit Report/Discharge Packet Instructions: DI for an Appendectomy Visit Report Forms: Patient Portal/API, Stroke Signs & Symptoms Discharge Data Attending Provider: Torito Lea Admit Date/Time: 02/19/20 15:11 Quality VTE Deep Vein Thrombosis/Pulmonary Embolism Present on Admission: No
[2020-02-20] MEDS: ACETAMINOPHEN 325 MG TABLET 650 MG PO (10:02)
--- NOTE | 2020-02-20 10:24 | PC.NURSE ---
All discharge teaching done w/ patient and . Patient educated about lifting and activity, pain medication use (Oxycodone and Tylenol), ss of infection, falls, ss of stroke, and follow up appt. w/ Dr. Lea. Patient was to order picker/assembler escripts from [facility] in [place]. Patient and verbalized understanding about discharge teaching. Patient left facility via wheelchair and private vehicle.
--- NOTE | 2020-02-20 10:56 | CM.DANOTE ---
DCP: Case received, EMR reviewed and met with patient. Introduced self and role. Was able to obtain information from patient regarding his baseline activity level prior to surgery. DCP assessment completed with information currently available. Patient is a 39 year old male who admitted yesterday afternoon to the care of the hospitalist/surgical team. PCP: [facility], he is establishing care there with one of the nurse practitioners (couldn't remember name of provider). Payer: confirmed: [employer]. Patient came to the hospital via family vehicle secondary to right sided abdominal pain. He was diagnosed with acute appendicitis. Patient has laparoscopic appendectomy yesterday. Met with patient in his room. He was sitting up, on the edge of the bed. He is alert and oriented. Patient is independent at baseline, and is currently employed at [employer]. He resides in [place] with his spouse, Arleen. He is getting established as a new patient at [facility] with one of the nurse practitioners, could not remember her name. P: Patient has discharge orders to go home today. Olga Corey RN/Wrapper Stemmer Operator
== END 2020-02-20 10:31 | disposition home or self-care (01) ==
LOC: ED 15:09 → AC 15:27
PROVIDERS: Emergency Medicine; Admitting Provider Surgery; Emergency Provider Nurse Practitioner Family; Referring Provider Nurse Practitioner Family; Visit Provider Surgery
PROC: 0DTJ4ZZ Resection of Appendix, Percutaneous Endoscopic Approach (ICD-10-PCS; CPT 44970; principal; 2020-02-19 17:15)
DX: K35.33 Acute appendicitis with perforation, localized peritonitis, and gangrene, with abscess (principal); R10.30 Lower abdominal pain, unspecified; Z11.59 Encounter for screening for other viral diseases
CPT/HCPCS: 44970; 36415; 36592; 74177; 80053; 81003; 83605; 83690; 84145; 85025; 85610; 85730; 87635; 94762; 96361; 96365; 96366; 96375; 99219; 99284; G0378; J0330; J1100; J2175; J2250; J2270; J2405; J2543; J2704; J3010; Q9967

== ENCOUNTER → 2020-05-05 15:43 | Outpatient (CLI) | payer OTHER, SELFPAY ==
[2020-02-20 09:08] VITALS: BMI 24.3
--- NOTE | 2020-05-05 | DI.ECHO.S_ITS ---
[facility]---------+ [facility] +---------+ : : [address] : [address] : : : : [id number] : : : : Phone: [phone]+ Echocardiogram Report + + :Name: EREN RAZO Study Date: 05/05/2020 Height: 74 in : :[facility] Weight: 195 lb : : Gender: Male BSA: 2.1 m2 : :: 1980 Age: 40 yrs BP: 150/81 mmHg: :Reason For Study: HEART MURMUR : :Ordering Physician: PETROS, : :AARON Performed By: Laura Alves : :Referring: AARON MORRELL : + + Interpretation Summary The ejection fraction is estimated to be 60-65%. There is no significant valvular heart disease. Procedure: A two-dimensional transthoracic echocardiogram with color flow and Doppler was performed. The study quality was technically adequate. There is no prior echocardiogram noted for this patient. The patient was in sinus rhythm with heart rates between 68-84 bpm during the exam. Left Ventricle: The left ventricle is normal in size and wall thickness. The ejection fraction is estimated to be 60-65%. Left ventricular wall motion is normal. Diastolic parameters suggest probable normal left ventricular diastolic function and normal filling pressures. Right Ventricle: The right ventricle is mildly dilated. The right ventricular systolic function is normal. Atria: The left atrial size is normal. Right atrial size is normal. There is no Doppler evidence for an interatrial shunt. Mitral Valve: The mitral valve is normal in structure and function. There is trace mitral regurgitation. Aortic Valve: The aortic valve is not well visualized. The aortic valve opens well. There is no aortic valve stenosis. No aortic regurgitation is present. Tricuspid Valve: The tricuspid valve is normal in structure and function. Pulmonary artery pressures cannot be estimated because of the lack of a measurable TR jet velocity but the IVC suggests a CVP of around 3 mmHg. Pulmonic Valve: The pulmonic valve is not well seen, but is grossly normal. There is no pulmonic valvular regurgitation. Great Vessels: The aortic root is normal size. The ascending aorta could not be visualized. The IVC is of normal diameter and collapses greater than 50% with a sniff. This suggests a low right atrial pressure of 3 mm Hg. Pericardium/ Pleura There is no pericardial effusion. There is no pleural effusion. MMode/2D Measurements & Calculations LVIDd: 5.5 cm LVOT diam: 2.3 cm LVIDs: 3.8 cm Ao root diam: 3.3 cm FS: 29.8 % EPSS: 0.29 cm IVSd: 0.92 cm LVPWd: 0.89 cm LV king. diameter/BSA (cm/m^2): 2.5 LV sys. diameter/BSA (cm/m^2): 1.8 LA A2 area: 18.3 cm2 RA long axis: 5.0 cm LA A4 area: 19.1 cm2 RA area: 17.5 cm2 LA length (vol): 4.6 cm RA vol: 52.3 ml LA vol: 64.2 ml RA : 24.3 ml/m2 LA vol index: 29.9 ml/m2 IVC diam: 1.3 cm RVD1 (basal): 4.5 cm TAPSE: 3.5 cm Doppler Measurements & Calculations Ao V2 max: 142.7 cm/sec LVOT Max Vasyl: 111.3 cm/sec Ao V2 mean: 98.2 cm/sec LV V1 max P.0 mmHg Ao max P.1 mmHg LV V1 VTI: 19.3 cm Ao mean P.3 mmHg KITTY(I,D): 3.0 cm2 Ao V2 VTI: 25.5 cm KITTY(V,D): 3.1 cm2 sev ratio: 0.76 KITTY indexed to BSA (cm^2/m^2): 1.4 MV E max vasyl: 71.9 cm/sec PA V2 max: 92.0 cm/sec MV A max vasyl: 56.6 cm/sec PA V2 mean: 63.5 cm/sec MV E/A: 1.3 PA mean P.8 mmHg Med Peak E' Vasyl: 11.4 cm/sec PA pr(Accel): 17.3 mmHg E/E' med: 6.3 Lat Peak E' Vasyl: 16.9 cm/sec E/E' lat: 4.3 E/e' average: 5.3 MV dec time: 0.13 sec SV(LVOT): 77.5 ml Reading Physician:01:15 PM
== END ==
PROVIDERS: PCP Internal Medicine; Referring Provider Internal Medicine; Visit Provider Internal Medicine
DX: R01.1 Cardiac murmur, unspecified (principal)
CPT/HCPCS: 93306

== ENCOUNTER → 2023-06-16 15:47 | Outpatient (CLI) | payer OTHER, SELFPAY ==
[2020-02-20 09:08] VITALS: BMI 24.3
--- NOTE | 2023-06-16 | DI.ECHO.S_ITS ---
[facility]---------+ [facility] +---------+ : : [address] : [address] [address] : : : : [id number] : : : : Phone: [phone] +---------+ Echocardiogram Report + + :Name: EREN RAZO Study Date: 06/16/2023 Height: 74 in : :[facility] ReadingLocation: Weight: 200 lb : : Gender: Male BSA: 2.2 m2 : :: 1980 Age: 43 yrs BP: 151/88 mmHg: :Reason For Study: MURMUR : :Ordering Physician: PETROS, : :AARON Performed By: Ty Rocha : :Referring: AARON MORRELL : + + Interpretation Summary The ejection fraction is estimated to be 60-65%. Diastolic parameters suggest probable normal left ventricular diastolic function and normal filling pressures. The right ventricle is normal in size and function. No significant valvular abnormalities. Pulmonary artery pressures cannot be estimated because of the lack of a measurable TR jet velocity but the IVC suggests a CVP of around 3 mmHg. Compared to the prior study dated 05/05/2020, no change. Procedure: A two-dimensional transthoracic echocardiogram with color flow and Doppler was performed. The study quality was technically adequate. Comparison is made with the echocardiogram of 05/05/20. The patient was in normal sinus rhythm during the exam. The heart rate ranged between 68-84 bpm during the study. Left Ventricle: The left ventricle is normal in size and wall thickness. The ejection fraction is estimated to be 60-65%. Diastolic parameters suggest probable normal left ventricular diastolic function and normal filling pressures. Right Ventricle: The right ventricle is normal in size and function. The right ventricular systolic function is normal. Atria: The left atrial size is normal. Right atrial size is normal. Mitral Valve: The mitral valve is normal in structure and function. There is no mitral valve stenosis. There is trace mitral regurgitation. Aortic Valve: The aortic valve opens well. There is no aortic valve stenosis. No aortic regurgitation is present. Tricuspid Valve: The tricuspid valve is normal in structure and function. There is no tricuspid stenosis. No tricuspid regurgitation. Pulmonary artery pressures cannot be estimated because of the lack of a measurable TR jet velocity but the IVC suggests a CVP of around 3 mmHg. Pulmonic Valve: The pulmonic valve is not well visualized. There is no pulmonic valvular stenosis. There is no pulmonic valvular regurgitation. Great Vessels: The aortic root is normal size. The dimensions of the ascending aorta are normal. The IVC is of normal diameter and collapses greater than 50% with a sniff. This suggests a low right atrial pressure of 3 mm Hg. Pericardium/ Pleura There is no pericardial effusion. There is no pleural effusion. MMode/2D Measurements & Calculations LVIDd: 5.6 cm LVOT diam: 2.4 cm LVIDs: 3.5 cm Ao root diam: 3.1 cm FS: 36.8 % asc Aorta Diam: 3.2 cm IVSd: 0.82 cm LVPWd: 0.80 cm LV king. diameter/BSA (cm/m^2): 2.6 LV sys. diameter/BSA (cm/m^2): 1.6 LA A2 area: 24.0 cm2 RA long axis: 5.0 cm LA A4 area: 22.0 cm2 RA area: 17.6 cm2 LA length (vol): 5.4 cm RA vol: 52.7 ml LA vol: 82.9 ml RA : 24.2 ml/m2 LA vol index: 38.1 ml/m2 IVC diam: 1.5 cm RVD1 (basal): 4.3 cm RVD2 (mid): 3.7 cm TAPSE: 2.9 cm Doppler Measurements & Calculations Ao V2 max: 169.1 cm/sec LVOT Max Vasyl: 127.2 cm/sec Ao V2 mean: 114.3 cm/sec LV V1 max P.5 mmHg Ao max P.4 mmHg LV V1 VTI: 30.1 cm Ao mean P.1 mmHg KITTY(I,D): 3.9 cm2 Ao V2 VTI: 34.4 cm KITTY(V,D): 3.4 cm2 sev ratio: 0.88 KITTY indexed to BSA (cm^2/m^2): 1.8 MV E max vasyl: 88.6 cm/sec PA V2 max: 150.2 cm/sec MV A max vasyl: 57.6 cm/sec PA V2 mean: 113.2 cm/sec MV E/A: 1.5 PA mean P.5 mmHg Med Peak E' Vasyl: 21.1 cm/sec PA pr(Accel): 8.8 mmHg E/E' med: 4.2 Lat Peak E' Vasyl: 22.3 cm/sec E/E' lat: 4.0 E/e' average: 4.1 MV dec time: 0.19 sec SV(LVOT): 135.3 ml Reading Physician:08:25 PM
== END ==
PROVIDERS: PCP Internal Medicine; Referring Provider Internal Medicine; Visit Provider Internal Medicine
DX: R00.2 Palpitations (principal); R01.1 Cardiac murmur, unspecified
CPT/HCPCS: 93306

== ENCOUNTER → 2024-07-26 10:45 | Outpatient (CLI) | payer OTHER, SELFPAY ==
[2020-02-20 09:08] VITALS: BMI 24.3
--- NOTE | 2024-07-26 10:47 | DI.RAD.S_ITS ---
PROCEDURE: XR CHEST 2V INDICATIONS: Pleurodynia TECHNIQUE: 2 views of the chest were acquired. COMPARISON: None. FINDINGS: Surgical changes and devices: None. Lungs and pleura: Lungs are clear. No pleural effusions or pneumothorax. Mediastinum: Mediastinal contours are normal. Heart size is normal. Bones and chest wall: No suspicious bony abnormalities. Soft tissues appear unremarkable. IMPRESSION: No acute cardiopulmonary abnormality is seen. Dictated by: Bulmaro Louise M.D. on 07/26/2024 at 12:38 Approved by: Bulmaro Louise M.D. on 07/26/2024 at 12:38
== END ==
LOC: RAD 10:46
PROVIDERS: PCP Family Medicine; Referring Provider Family Medicine; Visit Provider Family Medicine
DX: R07.81 Pleurodynia (principal)
CPT/HCPCS: 71046